=== PATIENT | female | born 1955 | race Two or more races ===

== ENCOUNTER → 2022-08-14 | Outpatient (CLI) | payer MEDICARE, OTHER ==
[~2022-08-14] MED LIST: ESCI10TA PO; LISI-716 PO; TRAM50TA2 PO
[2022-08-14 08:14] LABS: Basophils # (auto) 0 10 ^3/uL (0-0.2); Basophils % (auto) 0.7 % (0.0-2.0); Eosinophils # (auto) 0.1 10 ^3/uL (0-0.8); Eosinophils % (auto) 1.5 % (0.0-7.0); Hematocrit 42.7 % (36.0-46.0); Hemoglobin 14.8 g/dL (12.2-16.2); Lymphocytes # (auto) 2.7 10 ^3/uL (0.4-5.4); Lymphocytes % (auto) 40.4 % (10.0-50.0); Mean Corpuscular Hemoglobin 32.3 pg (28.0-32.0); Mean Corpuscular Hgb Conc. 34.6 g/dL (32.0-36.0); Mean Corpuscular Volume 93.2 fL (80.0-100.0); Monocytes # (auto) 0.3 10 ^3/uL (0-1.3); Monocytes % (auto) 5.1 % (0.0-12.0); Neutrophils # (auto) 3.5 10 ^3/uL (1.6-8.6); Neutrophils % (auto) 52.3 % (37.0-80.0); Nucleated Red Blood Cells % 0.4 %; Red Blood Cells 4.58 10^6/uL (4.0-5.20); Red Cell Distribution Width 14.1 % (11.8-14.3); White Blood Cell 6.6 10^3/uL (4.4-10.8)
[2022-08-14 14:20] LABS: Albumin 3.7 g/dL (3.4-5.0); BUN/Creatinine Ratio 30.6 (10.0-20.0); Bilirubin, Total 0.8 mg/dL (0.2-1.0); Calcium 10.1 mg/dL (8.5-10.1); Total Protein 7.5 g/dL (6.4-8.2)
== END | disposition home or self-care (01) ==
LOC: LAB 07:16
PROVIDERS: ATTEND Nurse Practitioner Family
DX: I10 Essential (primary) hypertension (principal); E78.49 Other hyperlipidemia; F41.9 Anxiety disorder, unspecified; E55.9 Vitamin D deficiency, unspecified
CPT/HCPCS: 36415; 80053; 80061; 82306; 84439; 84443; 85025

== ENCOUNTER → 2023-10-28 | Outpatient (CLI) | payer OTHER ==
[~2023-10-28] MED LIST changes: -LISI-716 PO; +LISI10TA34 PO
[2023-10-28 11:51] LABS: Basophils # (auto) 0 10 ^3/uL (0-0.2); Basophils % (auto) 0.6 % (0.0-2.0); Eosinophils # (auto) 0.1 10 ^3/uL (0-0.8); Hematocrit 36.1 % (36.0-46.0); Hemoglobin 12.5 g/dL (12.2-16.2); Lymphocytes # (auto) 2.1 10 ^3/uL (0.4-5.4); Lymphocytes % (auto) 27.5 % (10.0-50.0); Mean Corpuscular Hemoglobin 31.8 pg (28.0-32.0); Mean Corpuscular Hgb Conc. 34.7 g/dL (32.0-36.0); Mean Corpuscular Volume 91.5 fL (80.0-100.0); Monocytes # (auto) 0.4 10 ^3/uL (0-1.3); Monocytes % (auto) 5.9 % (0.0-12.0); Neutrophils # (auto) 4.9 10 ^3/uL (1.6-8.6); Red Blood Cells 3.95 10^6/uL (4.0-5.20); Red Cell Distribution Width 13.8 % (11.8-14.3); White Blood Cell 7.5 10^3/uL (4.4-10.8)
[2023-10-28 12:11] LABS: Alanine Aminotransferase 11 U/L (7-40); Alkaline Phosphatase 77 U/L (46-116); Anion Gap 4 (5-15); Aspartate Aminotransferase 16 U/L (13-40); Calcium 11.3 mg/dL (8.5-10.1); Carbon Dioxide 26 mmol/L (20-30); Chloride 109 mmol/L (98-107); Cholesterol 153 mg/dL (< 200); Glucose 86 mg/dL (74-106); HDL Cholesterol 46 mg/dL (40-59); Potassium 5.3 mmol/L (3.5-5.1); Sodium 139 mmol/L (136-145)
[2023-10-28 12:12] LABS: BUN/Creatinine Ratio 29.5 (10.0-20.0); Blood Urea Nitrogen 18 mg/dL (9-23); LDL Cholesterol 101 mg/dL (< 100); Triglycerides 82 mg/dL (< 150)
[2023-10-28 12:14] LABS: Bilirubin, Total 0.5 mg/dL (0.2-1.0); Total Protein 6.7 g/dL (5.7-8.2)
== END | disposition home or self-care (01) ==
LOC: LAB 11:20
PROVIDERS: ATTEND Nurse Practitioner Family
DX: E78.49 Other hyperlipidemia (principal); E04.9 Nontoxic goiter, unspecified; F41.9 Anxiety disorder, unspecified; E55.9 Vitamin D deficiency, unspecified
CPT/HCPCS: 36415; 80053; 80061; 82306; 84443; 85025

== ENCOUNTER → 2023-11-04 | Outpatient (CLI) | payer OTHER ==
[2023-11-04 13:52] LABS: Chloride 102 mmol/L (98-107); Potassium 4.3 mmol/L (3.5-5.1); Sodium 135 mmol/L (136-145)
[2023-11-04 13:53] LABS: Anion Gap 9 (5-15); Carbon Dioxide 24 mmol/L (20-30)
[2023-11-04 13:54] LABS: Calcium 11.4 mg/dL (8.5-10.1)
[2023-11-04 13:58] LABS: BUN/Creatinine Ratio 29.1 (10.0-20.0); Blood Urea Nitrogen 23 mg/dL (9-23); Glucose 94 mg/dL (74-106)
== END | disposition home or self-care (01) ==
LOC: LAB 13:16
PROVIDERS: ATTEND Nurse Practitioner Family
DX: E83.52 Hypercalcemia (principal)
CPT/HCPCS: 36415; 80048; 83970

== ENCOUNTER → 2023-11-13 | Outpatient (CLI) | payer OTHER | END | disposition home or self-care (01) | LOC: XY 09:08 | PROVIDERS: ATTEND Nurse Practitioner Family | DX: E83.52 Hypercalcemia (principal) | CPT/HCPCS: 78306; A9503 ==

== ENCOUNTER → 2023-11-14 | Outpatient (CLI) | payer OTHER | END | disposition home or self-care (01) | LOC: XYW 09:20 | PROVIDERS: ATTEND Nurse Practitioner Family | DX: R59.0 Localized enlarged lymph nodes (principal); C96.9 Malignant neoplasm of lymphoid, hematopoietic and related tissue, unspecified; F17.210 Nicotine dependence, cigarettes, uncomplicated | CPT/HCPCS: 38505; 76942 ==

== ENCOUNTER → 2023-12-05 | Outpatient (CLI) | payer OTHER ==
[2023-12-05 13:20] LABS: Basophils # (auto) 0.1 10 ^3/uL (0-0.2); Basophils % (auto) 0.7 % (0.0-2.0); Eosinophils # (auto) 0.2 10 ^3/uL (0-0.8); Eosinophils % (auto) 2.9 % (0.0-7.0); Hematocrit 35.8 % (36.0-46.0); Hemoglobin 12.4 g/dL (12.2-16.2); Lymphocytes # (auto) 2.1 10 ^3/uL (0.4-5.4); Lymphocytes % (auto) 25.5 % (10.0-50.0); Mean Corpuscular Hgb Conc. 34.6 g/dL (32.0-36.0); Mean Corpuscular Volume 89.6 fL (80.0-100.0); Monocytes # (auto) 0.4 10 ^3/uL (0-1.3); Monocytes % (auto) 4.7 % (0.0-12.0); Neutrophils # (auto) 5.5 10 ^3/uL (1.6-8.6); Neutrophils % (auto) 66.2 % (37.0-80.0); Nucleated Red Blood Cells % 0.1 %; Red Blood Cells 3.99 10^6/uL (4.0-5.20); White Blood Cell 8.4 10^3/uL (4.4-10.8)
[2023-12-05 13:36] LABS: Alanine Aminotransferase 12 U/L (7-40); Albumin 4.3 g/dL (3.2-4.8); Alkaline Phosphatase 105 U/L (46-116); Anion Gap 4 (5-15); Aspartate Aminotransferase 23 U/L (13-40); Blood Urea Nitrogen 33 mg/dL (9-23); Carbon Dioxide 36 mmol/L (20-30); Chloride 97 mmol/L (98-107); Glucose 109 mg/dL (74-106); Potassium 2.8 mmol/L (3.5-5.1); Sodium 137 mmol/L (136-145)
[2023-12-05 13:37] LABS: Bilirubin, Total 0.3 mg/dL (0.2-1.0); Total Protein 7.3 g/dL (5.7-8.2)
[2023-12-05 13:40] LABS: Thyroid Stimulating Hormone 2.32 uIU/mL (0.55-4.78)
[2023-12-05 13:53] LABS: Hepatitis B Surface Antigen Negative (Negative)
[2023-12-05 14:03] LABS: Calcium 13.7 mg/dL (8.7-10.4)
[2023-12-05 14:14] LABS: Hepatitis C Antibody Negative (Negative)
== END | disposition home or self-care (01) ==
LOC: LAB 12:43
PROVIDERS: ATTEND Internal Medicine
DX: C76.0 Malignant neoplasm of head, face and neck (principal)
CPT/HCPCS: 36415; 80053; 83615; 83970; 84436; 84443; 85025; 86803; 87340

== ENCOUNTER → 2024-01-10 | Outpatient (CLI) | payer OTHER ==
[2024-01-10 14:09] LABS: Basophils # (auto) 0 10 ^3/uL (0-0.2); Basophils % (auto) 0.5 % (0.0-2.0); Eosinophils # (auto) 0.1 10 ^3/uL (0-0.8); Eosinophils % (auto) 1.8 % (0.0-7.0); Hematocrit 33.7 % (36.0-46.0); Hemoglobin 11.8 g/dL (12.2-16.2); Lymphocytes # (auto) 0.9 10 ^3/uL (0.4-5.4); Mean Corpuscular Hemoglobin 31.1 pg (28.0-32.0); Mean Corpuscular Hgb Conc. 34.9 g/dL (32.0-36.0); Monocytes # (auto) 0.5 10 ^3/uL (0-1.3); Monocytes % (auto) 6.6 % (0.0-12.0); Neutrophils # (auto) 6.3 10 ^3/uL (1.6-8.6); Neutrophils % (auto) 80.1 % (37.0-80.0); Platelet Count (auto) 359 10^3/uL (140-450); Red Blood Cells 3.79 10^6/uL (4.0-5.20); Red Cell Distribution Width 13.6 % (11.8-14.3); White Blood Cell 7.8 10^3/uL (4.4-10.8)
[2024-01-10 15:04] LABS: Albumin 4.4 g/dL (3.2-4.8); Alkaline Phosphatase 80 U/L (46-116); Anion Gap 5 (5-15); Aspartate Aminotransferase 11 U/L (13-40); BUN/Creatinine Ratio 61.3 (10.0-20.0); Bilirubin, Total 0.2 mg/dL (0.2-1.0); Blood Urea Nitrogen 57 mg/dL (9-23); Calcium 12.3 mg/dL (8.7-10.4); Carbon Dioxide 32 mmol/L (20-30); Chloride 95 mmol/L (98-107); Glucose 105 mg/dL (74-106); Potassium 3.1 mmol/L (3.5-5.1); Sodium 132 mmol/L (136-145); Total Protein 7.6 g/dL (5.7-8.2)
[2024-01-10 15:05] LABS: Alanine Aminotransferase < 9 U/L (7-40)
== END | disposition home or self-care (01) ==
LOC: LAB 13:49
PROVIDERS: ATTEND Internal Medicine
DX: C76.0 Malignant neoplasm of head, face and neck (principal); E83.52 Hypercalcemia
CPT/HCPCS: 36415; 80053; 83615; 85025

== ENCOUNTER → 2024-01-16 | Outpatient (CLI) | payer OTHER ==
[2024-01-16 16:18] LABS: Basophils # (auto) 0 10 ^3/uL (0-0.2); Basophils % (auto) 0.3 % (0.0-2.0); Eosinophils # (auto) 0 10 ^3/uL (0-0.8); Eosinophils % (auto) 0.6 % (0.0-7.0); Hematocrit 32.6 % (36.0-46.0); Hemoglobin 11.4 g/dL (12.2-16.2); Lymphocytes # (auto) 0.6 10 ^3/uL (0.4-5.4); Mean Corpuscular Hemoglobin 31.3 pg (28.0-32.0); Mean Corpuscular Volume 89.5 fL (80.0-100.0); Monocytes # (auto) 0.5 10 ^3/uL (0-1.3); Monocytes % (auto) 7.6 % (0.0-12.0); Neutrophils # (auto) 5.8 10 ^3/uL (1.6-8.6); Neutrophils % (auto) 82.5 % (37.0-80.0); Nucleated Red Blood Cells % 0.1 %; Platelet Count (auto) 325 10^3/uL (140-450); Red Blood Cells 3.65 10^6/uL (4.0-5.20); Red Cell Distribution Width 14.1 % (11.8-14.3)
[2024-01-16 16:45] LABS: Albumin 4.2 g/dL (3.2-4.8); Alkaline Phosphatase 74 U/L (46-116); Anion Gap 4 (5-15); Aspartate Aminotransferase 9 U/L (13-40); Bilirubin, Total 0.3 mg/dL (0.2-1.0); Blood Urea Nitrogen 71 mg/dL (9-23); Calcium 10.8 mg/dL (8.7-10.4); Carbon Dioxide 32 mmol/L (20-30); Chloride 99 mmol/L (98-107); Glucose 80 mg/dL (74-106); Potassium 3.4 mmol/L (3.5-5.1); Sodium 135 mmol/L (136-145); Total Protein 7.2 g/dL (5.7-8.2)
[2024-01-16 16:55] LABS: Alanine Aminotransferase < 9 U/L (7-40)
== END | disposition home or self-care (01) ==
LOC: LAB 15:48
PROVIDERS: ATTEND Internal Medicine
DX: C76.0 Malignant neoplasm of head, face and neck (principal); E83.52 Hypercalcemia
CPT/HCPCS: 36415; 80053; 83615; 85025

== ENCOUNTER → 2024-01-23 | Outpatient (CLI) | payer OTHER ==
[2024-01-23 14:46] LABS: Basophils # (auto) 0.1 10 ^3/uL (0-0.2); Basophils % (auto) 0.8 % (0.0-2.0); Eosinophils # (auto) 0.1 10 ^3/uL (0-0.8); Eosinophils % (auto) 0.9 % (0.0-7.0); Hematocrit 33.1 % (36.0-46.0); Hemoglobin 11.4 g/dL (12.2-16.2); Lymphocytes # (auto) 0.7 10 ^3/uL (0.4-5.4); Lymphocytes % (auto) 8.6 % (10.0-50.0); Mean Corpuscular Hemoglobin 30.8 pg (28.0-32.0); Mean Corpuscular Hgb Conc. 34.4 g/dL (32.0-36.0); Mean Corpuscular Volume 89.3 fL (80.0-100.0); Monocytes # (auto) 0.5 10 ^3/uL (0-1.3); Monocytes % (auto) 7.1 % (0.0-12.0); Neutrophils # (auto) 6.3 10 ^3/uL (1.6-8.6); Neutrophils % (auto) 82.6 % (37.0-80.0); Nucleated Red Blood Cells % 0.2 %; Platelet Count (auto) 333 10^3/uL (140-450); Red Blood Cells 3.71 10^6/uL (4.0-5.20); Red Cell Distribution Width 14.5 % (11.8-14.3); White Blood Cell 7.7 10^3/uL (4.4-10.8)
[2024-01-23 15:20] LABS: Albumin 4.3 g/dL (3.2-4.8); Alkaline Phosphatase 89 U/L (46-116); Anion Gap 7 (5-15); Aspartate Aminotransferase 10 U/L (13-40); BUN/Creatinine Ratio 50.6 (10.0-20.0); Blood Urea Nitrogen 43 mg/dL (9-23); Calcium 10.3 mg/dL (8.7-10.4); Carbon Dioxide 32 mmol/L (20-31); Chloride 97 mmol/L (98-107); Glucose 139 mg/dL (74-106); Sodium 136 mmol/L (136-145)
[2024-01-23 15:21] LABS: Bilirubin, Total 0.2 mg/dL (0.2-1.0); Total Protein 7.2 g/dL (5.7-8.2)
[2024-01-23 15:22] LABS: Alanine Aminotransferase < 9 U/L (7-40)
== END | disposition home or self-care (01) ==
LOC: LAB 14:29
PROVIDERS: ATTEND Internal Medicine
DX: C76.0 Malignant neoplasm of head, face and neck (principal); E83.52 Hypercalcemia
CPT/HCPCS: 36415; 80053; 83615; 85025

== ENCOUNTER → 2024-02-07 | Outpatient (CLI) | payer OTHER ==
[2024-02-07 16:00] LABS: Basophils # (auto) 0 10 ^3/uL (0-0.2); Basophils % (auto) 0.8 % (0.0-2.0); Eosinophils # (auto) 0.1 10 ^3/uL (0-0.8); Hematocrit 31.9 % (36.0-46.0); Hemoglobin 10.9 g/dL (12.2-16.2); Lymphocytes # (auto) 0.8 10 ^3/uL (0.4-5.4); Lymphocytes % (auto) 16.8 % (10.0-50.0); Mean Corpuscular Hemoglobin 31.5 pg (28.0-32.0); Mean Corpuscular Hgb Conc. 34.3 g/dL (32.0-36.0); Mean Corpuscular Volume 91.9 fL (80.0-100.0); Monocytes # (auto) 0.4 10 ^3/uL (0-1.3); Monocytes % (auto) 7.9 % (0.0-12.0); Neutrophils # (auto) 3.6 10 ^3/uL (1.6-8.6); Neutrophils % (auto) 72.5 % (37.0-80.0); Platelet Count (auto) 277 10^3/uL (140-450); Red Blood Cells 3.47 10^6/uL (4.0-5.20); Red Cell Distribution Width 16.5 % (11.8-14.3)
[2024-02-07 16:16] LABS: Albumin 3.4 g/dL (3.2-4.8); Alkaline Phosphatase 102 U/L (46-116); Anion Gap 3 (5-15); Aspartate Aminotransferase 10 U/L (13-40); BUN/Creatinine Ratio 20.3 (10.0-20.0); Blood Urea Nitrogen 12 mg/dL (9-23); Calcium 9.8 mg/dL (8.7-10.4); Carbon Dioxide 31 mmol/L (20-31); Chloride 105 mmol/L (98-107); Glucose 92 mg/dL (74-106); Potassium 4.4 mmol/L (3.5-5.1); Sodium 139 mmol/L (136-145)
[2024-02-07 16:17] LABS: Bilirubin, Total 0.3 mg/dL (0.2-1.0)
[2024-02-07 16:19] LABS: Alanine Aminotransferase < 9 U/L (7-40)
== END | disposition home or self-care (01) ==
LOC: LAB 15:42
PROVIDERS: ATTEND Internal Medicine
DX: E83.52 Hypercalcemia (principal); C76.0 Malignant neoplasm of head, face and neck
CPT/HCPCS: 36415; 80053; 83615; 85025

== ENCOUNTER → 2024-03-13 | Outpatient (CLI) | payer OTHER ==
[2024-03-13 16:16] LABS: Basophils # (auto) 0 10 ^3/uL (0-0.2); Basophils % (auto) 0.5 % (0.0-2.0); Eosinophils # (auto) 0.1 10 ^3/uL (0-0.8); Eosinophils % (auto) 0.6 % (0.0-7.0); Hematocrit 34.9 % (36.0-46.0); Hemoglobin 12.1 g/dL (12.2-16.2); Lymphocytes # (auto) 0.8 10 ^3/uL (0.4-5.4); Lymphocytes % (auto) 10.4 % (10.0-50.0); Mean Corpuscular Hemoglobin 32.9 pg (28.0-32.0); Mean Corpuscular Hgb Conc. 34.5 g/dL (32.0-36.0); Mean Corpuscular Volume 95.3 fL (80.0-100.0); Monocytes # (auto) 0.5 10 ^3/uL (0-1.3); Monocytes % (auto) 6.3 % (0.0-12.0); Neutrophils # (auto) 6.5 10 ^3/uL (1.6-8.6); Neutrophils % (auto) 82.2 % (37.0-80.0); Nucleated Red Blood Cells % 0.1 %; Platelet Count (auto) 312 10^3/uL (140-450); Red Blood Cells 3.67 10^6/uL (4.0-5.20); Red Cell Distribution Width 16.2 % (11.8-14.3)
[2024-03-13 16:43] LABS: % Iron Saturation 21.5 % (15-50)
[2024-03-13 16:45] LABS: Thyroid Stimulating Hormone 3.8 uIU/mL (0.55-4.78)
[2024-03-13 16:57] LABS: Anion Gap 6 (5-15); BUN/Creatinine Ratio 19.3 (10.0-20.0); Blood Urea Nitrogen 11 mg/dL (9-23); Calcium 10.8 mg/dL (8.7-10.4); Carbon Dioxide 28 mmol/L (20-31); Chloride 104 mmol/L (98-107); Glucose 108 mg/dL (74-106); Sodium 138 mmol/L (136-145)
== END | disposition home or self-care (01) ==
LOC: LAB 15:50
PROVIDERS: ATTEND Nurse Practitioner
DX: C76.0 Malignant neoplasm of head, face and neck (principal); E83.52 Hypercalcemia
CPT/HCPCS: 36415; 80048; 82306; 82728; 83540; 83550; 83615; 83970; 84436; 84443; 85025

== ENCOUNTER → 2024-04-03 | Outpatient (CLI) | payer OTHER ==
[2024-04-03 16:20] LABS: Basophils # (auto) 0 10 ^3/uL (0-0.2); Basophils % (auto) 0.1 % (0.0-2.0); Eosinophils # (auto) 0 10 ^3/uL (0-0.8); Hematocrit 26.1 % (36.0-46.0); Lymphocytes # (auto) 0.7 10 ^3/uL (0.4-5.4); Mean Corpuscular Hemoglobin 32.5 pg (28.0-32.0); Mean Corpuscular Hgb Conc. 34.4 g/dL (32.0-36.0); Mean Corpuscular Volume 94.5 fL (80.0-100.0); Monocytes # (auto) 0.5 10 ^3/uL (0-1.3); Monocytes % (auto) 8.7 % (0.0-12.0); Neutrophils # (auto) 4.9 10 ^3/uL (1.6-8.6); Neutrophils % (auto) 79.2 % (37.0-80.0); Platelet Count (auto) 240 10^3/uL (140-450); Red Blood Cells 2.76 10^6/uL (4.0-5.20); Red Cell Distribution Width 13.8 % (11.8-14.3); White Blood Cell 6.2 10^3/uL (4.4-10.8)
[2024-04-03 16:46] LABS: Alkaline Phosphatase 108 U/L (46-116)
[2024-04-03 16:47] LABS: Alanine Aminotransferase 9 U/L (7-40); Albumin 3.1 g/dL (3.2-4.8); Anion Gap 7 (5-15); Aspartate Aminotransferase 16 U/L (13-40); BUN/Creatinine Ratio 21.7 (10.0-20.0); Bilirubin, Total 0.3 mg/dL (0.2-1.0); Blood Urea Nitrogen 10 mg/dL (9-23); Carbon Dioxide 29 mmol/L (20-31); Chloride 105 mmol/L (98-107); Glucose 110 mg/dL (74-106); Potassium 3.7 mmol/L (3.5-5.1); Sodium 141 mmol/L (136-145); Total Protein 5.4 g/dL (5.7-8.2)
== END | disposition home or self-care (01) ==
LOC: LAB 15:39
PROVIDERS: ATTEND Internal Medicine
DX: C76.0 Malignant neoplasm of head, face and neck (principal); E83.52 Hypercalcemia
CPT/HCPCS: 36415; 80053; 83615; 85025